=== PATIENT | female | born 1970 | race Caucasian/White ===

== ENCOUNTER 2017-08-01 11:20 | Outpatient (CLI) | payer OTHER | END 2017-08-01 11:21 | disposition home or self-care (01) | LOC: BICMAMMO 11:20 | PROVIDERS: ATTEND Obstetrics & Gynecology | DX: Z12.31 Encounter for screening mammogram for malignant neoplasm of breast (principal); R92.1 Mammographic calcification found on diagnostic imaging of breast; Z80.3 Family history of malignant neoplasm of breast | CPT/HCPCS: 77063; 77067 ==

== ENCOUNTER 2018-10-21 09:04 | Outpatient (CLI) | payer BC ==
--- NOTE | 2018-10-21 10:56 | ULT ---
FOCUSED ULTRASOUND OF THE LEFT BREAST: Date: 10/21/18 HISTORY: Lobulated density identified on recent mammography. FINDINGS: Mammogram demonstrates a subtle lobulated area of density at the 10 o'clock position of the left abhi st. Focused ultrasound of the left breast is obtained in this region. Sonographic assessment reveals a 0.6 x 1.0 cm lobulated area of altered echogenicity. It is heterogeneously hypoechoic. On real-time imaging, there is increased through-transmission. No abnormal shadowing. No internal blood flow is s een. IMPRESSION: BIRADS Category 3 - Probably benign findings. The combination of a relatively benign appearance on ma mmogram and the increased through-transmission on ultrasound suggests that this represents a complex cyst and/or cluster of cysts. As a conservative measure, a diagnostic mammogram and focused breast ul trasound is advised in 6 months on the left. Results and recommendations for follow-up discussed with the patient at the time of interpretation. POS: OFF
--- NOTE | 2018-10-21 12:12 | MMO ---
Left Breast MAMMO Unilat Diag DDI LT+OLEG. CLINICAL HISTORY: Patient is 48 years old and is seen for additional evaluation requested from prior study. The patient has the following family history of breast cancer: mother, at age 56 and cousin female, PATERNAL 2ND COUSIN. The patient has no personal history of cancer. VIEWS: The views performed were: left craniocaudal spot compression with tomosynthesis; left mediolateral oblique spot compression with tomosynthesis; and left mediolateral with tomosynthesis. FILMS COMPARED: The present examination has been compared to prior imaging studies performed at [facility] on 10/15/2018, and at [facility] on 08/25/2007, 03/10/2010, 07/03/2012, 05/07/2014, 03/12/2016, 08/01/2017 and 10/21/2018. MAMMOGRAM FINDINGS: The breast is heterogeneously dense, which could obscure a lesion on mammography. The area of concern noted on the recent screening examination is less conspicuous. A small lobulated mass is present in the upper inner left breast measuring 1cm. Ultrasound suggests a complex cyst and thus, follow up ultrasound and diagnostic mammogram recommended in 6 months. IMPRESSION: FINDING IN THE LEFT BREAST IS PROBABLY BENIGN. FOLLOW-UP IN 6 MONTHS IS RECOMMENDED. THE RESULTS OF THIS EXAM WERE SENT TO THE PATIENT. ACR BI-RADS Category 3 - Probably benign finding - short interval follow-up suggested. [facility] will notify the patient of the need for additional imaging services. MAMMOGRAPHY NOTE: 1. A negative mammogram report should not delay a biopsy if a dominant of clinically suspicious mass is present. 2. Approximately 10% to 15% of breast cancers are not detected by mammography. 3. Adenosis and dense breasts may obscure an underlying neoplasm.
== END 2018-10-21 09:05 | disposition home or self-care (01) ==
LOC: BICMAMMO 09:04
PROVIDERS: ATTEND Obstetrics & Gynecology
DX: R92.2 Inconclusive mammogram (principal); Z80.3 Family history of malignant neoplasm of breast
CPT/HCPCS: G0279

== ENCOUNTER 2019-03-31 15:04 | Outpatient (CLI) | payer BC ==
--- NOTE | 2019-03-31 16:12 | MMO ---
Left Breast MAMMO Unilat Diag DDI LT+OLEG. CLINICAL HISTORY: Patient is 48 years old and is seen for diagnostic exam. The patient has the following family history of breast cancer: mother, at age 56 and cousin female, PATERNAL 2ND COUSIN. The patient has no personal history of cancer. VIEWS: The views performed were: left craniocaudal with tomosynthesis; left mediolateral oblique with tomosynthesis; and left mediolateral with tomosynthesis. FILMS COMPARED: The present examination has been compared to prior imaging studies performed at [facility] on 10/15/2018, and at [facility] on 10/21/2018 and 03/31/2019. This study has been interpreted with the assistance of computer-aided detection. MAMMOGRAM FINDINGS: The breast is heterogeneously dense, which could obscure a lesion on mammography. There are no suspicious masses, suspicious calcifications, or new areas of architectural distortion. IMPRESSION: THERE IS NO MAMMOGRAPHIC EVIDENCE OF MALIGNANCY. A ROUTINE FOLLOW-UP MAMMOGRAM IN 1 YEAR IS RECOMMENDED. THE RESULTS OF THIS EXAM WERE SENT TO THE PATIENT. ACR BI-RADS Category 1 - Negative MAMMOGRAPHY NOTE: 1. A negative mammogram report should not delay a biopsy if a dominant of clinically suspicious mass is present. 2. Approximately 10% to 15% of breast cancers are not detected by mammography. 3. Adenosis and dense breasts may obscure an underlying neoplasm. Reported by: CATHY LOWE MD Electonically Signed: [id number]
--- NOTE | 2019-03-31 16:46 | ULT ---
ULTRASOUND LEFT BREAST: 03/31/19 INDICATIONS: Follow-up finding left breast noted on prior ultrasound exam of 10/21/18. FINDINGS: The area of concern noted on the prior exam at 10 o'clock left breast is again identified. A small hy poechoic focus is seen measuring approximately 5 mm today. This is an ill-defined hypoechoic focus wi th possibly an internal cystic structure. It is smaller than on the prior exam at which time it measu red approximately 1 cm in dimension. This lesion was not apparent on today's mammogram. IMPRESSION: Ill-defined hypoechoic focus at 10 o'clock left breast is smaller when compared to the prior exam in October. Recommend continued follow-up with repeat left breast ultrasound in this region in six months at time of patient's bilateral mammogram study. BIRADS 3: Probably Benign Finding Initial Short-Interval Follow-Up Suggested Initial short-term follow up (usually 6-month) left breast ultrasound examination POS: OFF
== END 2019-03-31 15:05 | disposition home or self-care (01) ==
LOC: BICMAMMO 15:04
PROVIDERS: ATTEND Obstetrics & Gynecology
DX: R92.8 Other abnormal and inconclusive findings on diagnostic imaging of breast (principal)
CPT/HCPCS: G0279

== ENCOUNTER 2019-11-06 14:22 | Outpatient (CLI) | payer BC ==
--- NOTE | 2019-11-09 08:13 | MMO ---
Bilateral MAMMO Bilat Screen DDI+OLEG. CLINICAL HISTORY: Patient is 49 years old and is seen for screening. The patient has the following family history of breast cancer: mother, at age 56 and cousin female, PATERNAL 2ND COUSIN. The patient has no personal history of cancer. VIEWS: The views performed were: bilateral craniocaudal with tomosynthesis; bilateral mediolateral oblique with tomosynthesis; and bilateral exaggerated craniocaudal. FILMS COMPARED: The present examination has been compared to prior imaging studies performed at [facility] on 10/21/2018 and 03/31/2019. This study has been interpreted with the assistance of computer-aided detection. MAMMOGRAM FINDINGS: The breasts are heterogeneously dense, which could obscure a lesion on mammography. There is suggestion of a nodule in the left upper outer breast, likely corresponding to the finding on US of 03/31/2019 In the right breast, there are no suspicious masses, calcifications or areas of architectural distortion. IMPRESSION: FINDING IN THE LEFT BREAST REQUIRES ADDITIONAL EVALUATION. SPOT COMPRESSION IS RECOMMENDED. AN ULTRASOUND EXAM IS RECOMMENDED. THE RESULTS OF THIS EXAM WERE SENT TO THE PATIENT. ACR BI-RADS Category 0 - Incomplete: Need additional imaging evaluation. [facility] will notify the patient of the need for additional imaging services. MAMMOGRAPHY NOTE: 1. A negative mammogram report should not delay a biopsy if a dominant of clinically suspicious mass is present. 2. Approximately 10% to 15% of breast cancers are not detected by mammography. 3. Adenosis and dense breasts may obscure an underlying neoplasm. Reported by: KIA HAGAN MD Electonically Signed: [id number]
== END 2019-11-06 14:23 | disposition home or self-care (01) ==
LOC: BICMAMMO 14:22
PROVIDERS: ATTEND Obstetrics & Gynecology
DX: Z12.31 Encounter for screening mammogram for malignant neoplasm of breast (principal); Z80.3 Family history of malignant neoplasm of breast
CPT/HCPCS: 77063; 77067

== ENCOUNTER 2019-11-12 08:44 | Outpatient (CLI) | payer BC ==
--- NOTE | 2019-11-12 09:27 | MMO ---
Left Breast MAMMO Unilat Diag DDI LT+OLEG. CLINICAL HISTORY: Patient is 49 years old and is seen for diagnostic exam. VIEWS: The views performed were: . FILMS COMPARED: The present examination has been compared to prior imaging studies performed at [facility] on 03/31/2019, 11/06/2019 and 11/12/2019. This study has been interpreted with the assistance of computer-aided detection. MAMMOGRAM FINDINGS: The breast is heterogeneously dense, which could obscure a lesion on mammography. Cysts in the left breast at 2 o'clock and 10 o'clock. There are no suspicious masses, suspicious calcifications, or new areas of architectural distortion. IMPRESSION: THERE IS NO MAMMOGRAPHIC EVIDENCE OF MALIGNANCY. A ROUTINE FOLLOW-UP MAMMOGRAM IN 1 YEAR IS RECOMMENDED. THE RESULTS OF THIS EXAM WERE SENT TO THE PATIENT. ACR BI-RADS Category 2 - Benign finding MAMMOGRAPHY NOTE: 1. A negative mammogram report should not delay a biopsy if a dominant of clinically suspicious mass is present. 2. Approximately 10% to 15% of breast cancers are not detected by mammography. 3. Adenosis and dense breasts may obscure an underlying neoplasm. Reported by: Zahraa ELKINS Electonically Signed: [id number]
--- NOTE | 2019-11-12 11:44 | ULT ---
ULTRASOUND LEFT BREAST: HISTORY: Abnormal mammogram. COMPARISON: Mammogram 11/12/2019 and [id number] other prior mammograms as well as multiple prior ultrasounds, most recent 03/31/2019. FINDINGS: At the left breast 2 o'clock is a well-defined anechoic cyst with adjacent cluster of cysts. At the left breast at 11 o'clock is cluster of cysts. IMPRESSION: BIRADS category 2: benign findings. Continued mammographic screening is recommended.
== END 2019-11-12 08:45 | disposition home or self-care (01) ==
LOC: BICMAMMO 08:44
PROVIDERS: ATTEND Obstetrics & Gynecology
DX: N63.20 Unspecified lump in the left breast, unspecified quadrant (principal)
CPT/HCPCS: G0279

== ENCOUNTER 2020-12-27 16:02 | Outpatient (CLI) | payer BC | END 2020-12-27 16:03 | disposition home or self-care (01) | LOC: BICMAMMO 16:02 | PROVIDERS: ATTEND Obstetrics & Gynecology | DX: Z12.31 Encounter for screening mammogram for malignant neoplasm of breast (principal); Z80.3 Family history of malignant neoplasm of breast | CPT/HCPCS: 77063; 77067 ==